=== PATIENT | male | born 1955 | race African-American/Black ===

== ENCOUNTER 2025-10-21 07:15 | Emergency (ER) | payer MEDICARE, SELFPAY ==
[2025-10-21] VITALS (23 sets, daily range): BP systolic 92–124; BP diastolic 50–76; PULSE 52–93; RESP 12–25; TEMP 36.4; O2SAT 94–100
--- NOTE | ~2025-10-21 | CT_ITS ---
CT HEAD NON-CONTRAST Clinical History: syncope Comparison: None Technique: Unenhanced axial images skull base to vertex Coronal, sagittal reformats CT images acquired with automatic exposure control for dose reduction DLP: 605 mGy-cm Findings: Mild white matter changes, typically chronic microvascular ischemic disease. Sulci, ventricles: Unremarkable. No intracerebral hemorrhage. No evidence acute territorial infarct. No mass effect, midline shift. Bony calvarium intact. Visualized paranasal sinuses: Clear. Mastoid air cells: Clear. IMPRESSION: 1. No acute intracranial findings. Reviewed, dictated and finalized at location R. ATIONS SUPPORT REPRESENTATIVE
--- NOTE | 2025-10-21 07:16 | ECG_ITS ---
Test Date: 2025-10-21 07:34:55 Measurements Intervals [place] Rate: 54 P: 15 TX: 208 QRS: 85 QRSD: 154 T: -9 QT: 478 QTc: 457 Interpretive Statements SINUS BRADYCARDIA RIGHT BUNDLE BRANCH BLOCK CONSIDER INFERIOR INFARCT, AGE INDETERMINATE BASELINE ARTIFACT- I, II, III, AVR, AVL, AVF, V1-V2 ABNORMAL ECG No previous ECG available for comparison Electronically Signed On 10-21-2025 07:57:28 CRUSHER SCREEN REPAIRER by Ge Lo D.O.
--- NOTE | 2025-10-21 07:31 | ED.SYNCOPE ---
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 Pt denies RECIO or neck pain. Pt denies melena or bleeding or CP or palpitations prior to event. Pt denies symptoms now. Related Data Allergies Allergy/AdvReac Type Severity Reaction Status Date / Time demeclocycline (From Allergy Intermediate Unknown Verified 10/21/25 07:25 Declomycin) Review of Systems Review of Systems: All systems reviewed & are unremarkable except as noted in HPI and below Exam Const: General: healthy appearing and no acute distress Nutritional Appearance: well nourished Orientation/consciousness: patient oriented x3 Limitations: no limitations HENMT: Head: normal to inspection Eyes: Conjunctivae: conjunctivae normal EOM: EOMs intact bilaterally Neck: Neck: normal visual inspection, no lymphadenopathy and no meningeal signs Resp: Effort & Inspection: normal respiratory effort Auscultation: clear to auscultation bilaterally Cardio: Rate: regular rate Rhythm: regular rhythm GI: GI Palp: Yes Soft to palpation and No Tenderness to palpation present (GI) Auscultation: normal bowel sounds Skin: General skin exam: normal color Rashes: no rashes Wounds: no wounds Neuro: General: patient oriented x3, moves all extremities, no meningeal signs, no focal motor deficits and CN's II-XI intact bilaterally Cranial nerves: Yes Nystagmus not present Speech: normal speech Extrem: General: normal to inspection and no clubbing, cyanosis or edema Psych: Mental Status: mental status grossly normal Affect: normal affect Attitude: cooperative Course Vital Signs Vital signs: Vital Signs Temperature 97.6 F 10/21/25 07:16 Pulse Rate 61 10/21/25 07:16 Respiratory Rate 20 10/21/25 07:16 Blood Pressure 107/65 10/21/25 07:16 Pulse Oximetry 99 10/21/25 07:16 Oxygen Delivery Room Air 10/21/25 07:16 Temperature 97.6 F 10/21/25 07:16 Pulse Rate 93 10/21/25 09:45 Respiratory Rate 19 10/21/25 09:45 Blood Pressure 123/76 10/21/25 09:32 Pulse Oximetry 100 10/21/25 09:32 Oxygen Delivery Room Air 10/21/25 07:27 Discharge Plan Discharge Clinical Impression: Syncope due to orthostatic hypotension Patient Disposition: Home Condition: Improved Instructions: Antibiotic Form, Dehydration (ED), Syncope (ED) Patient Language: Surinamese Follow-up/Referrals: PHYSICIAN,[employer] ADMINISTRATOR [Primary Care Provider, Internal Medicine] Carlos lOeary MD [Physician, Family Practice] [facility] Narrative Medical decision making narrative: will get CT head and labs and ekg and check orthostatics and give fluids. ct neg, labs unremarkable. Pt feels better after fluids. Differential Diagnosis Differential Diagnosis: cardiac arrythmia, orthostatic hypotension, dehydration, anemia, SAH Lab Data [facility] Lab Attestation statement: I personally reviewed the patient's lab results. 10/21/25 08:55 10/21/25 08:55 Labs: Lab Results 10/21/25 Range/Units 08:55 WBC 5.1 (4.5-10.0) K/mm3 RBC 5.71 (4.6-6.20) M/mm3 Hgb 17.3 (14.0-18.0) g/dL Hct 51.8 (42.0-52.0) % MCV 90.7 (80-100) fl MCH 30.3 (26-34) pg MCHC 33.4 (32-36) g/dl RDW 15.1 H (11.5-14.5) % Plt Count 166 (150-375) k/mm3 MPV 12.0 H (7.4-10.4) fl Immature Gran % (Auto) 0.2 (0-0.5) % Neut % (Auto) 43.9 L (45.5-73.1) % Lymph % (Auto) 40.9 (18.3-44.2) % [place] % (Auto) 11.3 H (2.6-8.5) % Eos % (Auto) 2.9 (0-4.4) % Baso % (Auto) 0.8 (0.2-1.2) % Lymph # (Auto) 2.10 (0.9-3.2) K/mm3 [place] # (Auto) 0.6 (0.1-0.6) K/mm3 Eos # (Auto) 0.2 (0-0.3) K/mm3 Baso # (Auto) 0.0 (0.0-0.1) K/mm3 Abs Immat Gran (auto) 0.01 (0.00-0.031) K/mm3 Absolute Neuts (auto) 2.3 (1.3-6.7) K/mm3 Absolute Nucleated RBC 0.000 (0.0-0.012) K/mm3 Nucleated RBC % 0.0 (0.0-0.2) % PT 13.6 (11.1-14.7) Seconds INR 1.0 APTT 25.4 (22.3-36.8) Seconds Sodium 138 (137-145) mmol/L Potassium 4.2 (3.4-5.0) mmol/L Chloride 105 (98-107) mmol/L Carbon Dioxide 30 (22-30) mmol/L Anion Gap 3 L (4-12) mmol/L BUN 10 (9-20) mg/dL Creatinine 0.87 (0.7-1.3) mg/dL Estim Creat Clear Calc 85 ml/min Estimated GFR > 60 (59 - ) Glucose 148 H (65-110) mg/dL Calcium 8.7 (8.4-10.2) mg/dL Total Bilirubin 1.1 (0.2-1.3) mg/dL AST 28 (17-59) U/L ALT 27 (6-50) U/L Alkaline Phosphatase 91 (38-126) U/L Troponin I < 0.012 (0.000-0.034) ng/mL Total Protein 6.9 (6.3-8.2) g/dL Albumin 4.0 (3.5-5.1) g/dL Imaging Data Attestation: I personally reviewed and interpreted this imaging study as follows: My impression: no bleed Radiologist's impression: ITS Impressions Head CT 10/21/25 07:57 IMPRESSION: 1. No acute intracranial findings. [address] [place] [id number] Scan Report Signed Patient: Abe Quezada : 1955 MR#: [id number] Age: 69 Acct:[id number] Loc: [facility] ADM Date: 10/21/[address]: Ordering Physician: Neal Das III, DO Date of Service: 10/21/25 Procedure(s): CT brain wo con Accession Number(s): [id number] cc: Neal Das Sunil III, DO~ CT HEAD NON-CONTRAST Clinical History: syncope Comparison: None Technique: Unenhanced axial images skull base to vertex Coronal, sagittal reformats CT images acquired with automatic exposure control for dose reduction DLP: 605 mGy-cm Findings: Mild white matter changes, typically chronic microvascular ischemic disease. Sulci, ventricles: Unremarkable. No intracerebral hemorrhage. No evidence acute territorial infarct. No mass effect, midline shift. Bony calvarium intact. Visualized paranasal sinuses: Clear. Mastoid air cells: Clear. IMPRESSION: 1. No acute intracranial findings. Reviewed, dictated and finalized at location R. Y SEPARATOR HARD Please be advised this is a medical document. It is intended for [id number] communication. It is written in medical language and may contain unfamiliar abbreviations or verbiage. Medical documents are intended to carry relevant information, facts as evident, and the clinical opinion of the practitioner at the time of the encounter. This report may have been done utilizing a voice recognition system. Attempts have been made to correct errors. However, there may be uncorrected grammatical, spelling, and recognition errors present. The file time of this note does not necessarily represent the time of service. Dictated By: Abel Lerner MD 10/21/25 0757 Signed By: <Electronically signed by Abel Lerner MD in [place]> ECG Data EKG #1: Interpretation: sinus irvin rate 56, rbbb no acute st or t wave changes. reviewed independently by me
[2025-10-21 09:00] LABS: Hematocrit 51.8 % (42.0-52.0); Hemoglobin 17.3 g/dL (14.0-18.0); Immature Granulocyte Percent A 0.2 % (0-0.5); Lymphocytes Absolute Auto 2.10 K/mm3 (0.9-3.2); Mean Corpuscular HGB Conc 33.4 g/dl (32-36); Mean Corpuscular Hemoglobin 30.3 pg (26-34); Mean Corpuscular Volume 90.7 fl (80-100); Nucleated Red Blood Cells Absolute Auto 0.000 K/mm3 (0.0-0.012); Nucleated Red Blood Cells Perc 0.0 % (0.0-0.2); Platelet Count Result 166 k/mm3 (150-375); Red Blood Count 5.71 M/mm3 (4.6-6.20); White Blood Count 5.1 K/mm3 (4.5-10.0)
[2025-10-21 09:12] LABS: Alanine Aminotransferase 27 U/L (6-50); Albumin Level 4.0 g/dL (3.5-5.1); Alkaline Phosphatase 91 U/L (38-126); Anion Gap 3 mmol/L (4-12); Aspartate Amino Transferase 28 U/L (17-59); Bilirubin,Total 1.1 mg/dL (0.2-1.3); Blood Urea Nitrogen 10 mg/dL (9-20); Calcium 8.7 mg/dL (8.4-10.2); Carbon Dioxide 30 mmol/L (22-30); Chloride 105 mmol/L (98-107); Estimated CRCL calculation 85 ml/min; Estimated Glomerular Filt Rate > 60; Glucose 148 mg/dL (65-110); Potassium 4.2 mmol/L (3.4-5.0); Sodium 138 mmol/L (137-145); Total Protein 6.9 g/dL (6.3-8.2)
[2025-10-21 09:19] LABS: INR 1.0; Prothrombin Time 13.6 Seconds (11.1-14.7)
[2025-10-21 09:20] LABS: Partial Thromboplastin Time 25.4 Seconds (22.3-36.8)
[2025-10-21 09:23] LABS: Troponin I < 0.012 ng/mL (0.000-0.034)
== END 2025-10-21 10:22 | disposition home or self-care (01) ==
PROVIDERS: Emergency Provider Emergency Medicine
DX: I95.1 Orthostatic hypotension (principal); R94.31 Abnormal electrocardiogram [ECG] [EKG]
CPT/HCPCS: 36415; 70450; 80053; 84484; 85025; 85610; 85730; 93005; 99284